=== PATIENT | female | born 1985 | race American Indian/Alaskan Native ===

== ENCOUNTER 2016-05-13 18:07 | Emergency (ER) | payer MEDICAID, OTHER ==
[2016-05-13 19:02] LABS: Bacteria,Urine 1+ /HPF (Negative); Bilirubin,Urine NEG (Negative); Blood,Urine SM (Negative); Ketones,Urine TR mg/dL (Negative); Leukocyte Esterase,Urine TR (Negative); Mucus,Urine 3+ /HPF; Nitrite,Urine NEG (Negative); Urobilinogen,Urine < 2.0 mg/dL (<2.0)
[2016-05-13 19:18] LABS: Basophils % (Auto) 0.6 % (0.0-1.8); Eosinophils % (Auto) 1.5 % (0.0-4.3); Hematocrit 36.6 % (30.3-42.9); Hemoglobin 12.3 gm/dl (10.1-14.3); Mean Corpuscular HGB Conc 34 % (30-34); Mean Corpuscular Hemoglobin 31 pg (28-32); Mean Corpuscular Volume 93 fl (79-97); Platelet Count 204 K/mm3 (140-440); Red Blood Count 3.93 M/mm3 (3.65-5.03); Red Cell Distribution Width 13.6 % (13.2-15.2); White Blood Count 6.4 K/mm3 (4.5-11.0)
[2016-05-13 19:37] LABS: Alanine Aminotransferase 10 units/L (7-56); Albumin 4.2 g/dL (3.9-5); Albumin/Globulin Ratio 1.8 %; Alkaline Phosphatase 80 units/L (35-129); BUN/Creatinine Ratio 14.28; Bilirubin,Total 0.2 mg/dL (0.1-1.2); Blood Urea Nitrogen 10 mg/dL (7-17); Calcium 8.6 mg/dL (8.4-10.2); Carbon Dioxide 24 mmol/L (22-30); Chloride 104.8 mmol/L (98-107); Glucose 82 mg/dL (65-100); Lipase 18 units/L (13-60); Potassium 4.1 mmol/L (3.6-5.0); Sodium 141 mmol/L (137-145); Total Protein 6.5 g/dL (6.3-8.2)
[2016-05-13 19:50] LABS: Anion Gap 16 mmol/L
[2016-05-13] MEDS ORDERED: ZOFRAN IV ONE (22:03)
[2016-05-13] MEDS ORDERED: DILAUDID IV ONE (22:04)
--- NOTE | 2016-05-13 22:06 | Emergency Department Report ---
ED General Adult HPI - General Chief complaint: Abdominal Pain Stated complaint: PAIN Time Seen by Provider: 05/13/16 21:56 Source: patient, RN notes reviewed Mode of arrival: Ambulatory Limitations: No Limitations - History of Present Illness Initial comments: This is a 30-year-old female, previously unknown to me. This past Saturday, patient had laparoscopic ovarian cystectomy performed at [facility], by Dr. Rolando Robertson. 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 She reports that since the procedure completed, she's had persistent abdominal pain. The abdominal pain is sharp and diffuse. It increases with palpation and decreases with rest. No fevers. Positive diarrhea. Reports 3 episodes of watery diarrhea in the past 24 hours. Apparently she was given Percocet, and she reports complaining all of her Percocet prescription. -: Gradual Location: abdomen Severity scale (0 -10): 10 Consistency: constant Improves with: rest Worsens with: movement Associated Symptoms: denies: confusion, chest pain, cough, diaphoresis, fever/ chills, headaches, loss of appetite, shortness of breath, syncope - Related Data Previous Rx's Medication Instructions Recorded Last Taken Type Metoclopramide [Reglan] 10 mg PO QID PRN #30 tablet 05/14/16 Unknown Rx oxyCODONE [Roxicodone] 5 mg PO Q6HR PRN #15 tablet 05/14/16 Unknown Rx Allergies Allergy/AdvReac Type Severity Reaction Status Date / Time No Known Allergies Allergy Verified 07/01/13 08:38 ED Review of Systems ROS: Stated complaint: PAIN Other details as noted in HPI Constitutional: denies: fever Eyes: denies: vision change ENT: denies: epistaxis Respiratory: denies: cough Cardiovascular: denies: chest pain Gastrointestinal: abdominal pain, diarrhea Genitourinary: denies: dysuria Musculoskeletal: denies: back pain Skin: denies: lesions Neurological: denies: abnormal gait Psychiatric: as per HPI, anxiety ED Past Medical Hx - Past Medical History Previous Medical History?: Yes Hx Congestive Heart Failure: No Hx Diabetes: No Hx GERD: Yes Hx Asthma: Yes Hx COPD: No Additional medical history: ovarian cysts - Surgical History Past Surgical History?: Yes Additional Surgical History: left ovary removal surgery - Social History Smoking Status: Never Smoker Substance Use Type: None - Medications Home Medications: Home Medications Medication Instructions Recorded Confirmed Last Taken Type Metoclopramide [Reglan] 10 mg PO QID PRN #30 tablet 05/14/16 Unknown Rx oxyCODONE [Roxicodone] 5 mg PO Q6HR PRN #15 tablet 05/14/16 Unknown Rx ED Physical Exam - General Limitations: No Limitations General appearance: alert, in no apparent distress - Head Head exam: Present: atraumatic, normocephalic - Eye Eye exam: Present: normal appearance, EOMI. Absent: nystagmus - ENT ENT exam: Present: normal exam, normal orophraynx, mucous membranes moist, normal external ear exam - Neck Neck exam: Present: normal inspection, full ROM. Absent: tenderness, meningismus - Respiratory Respiratory exam: Present: normal lung sounds bilaterally. Absent: respiratory distress, wheezes, rales, rhonchi, stridor, decreased breath sounds - Cardiovascular Cardiovascular Exam: Present: regular rate, normal rhythm, normal heart sounds. Absent: bradycardia, tachycardia, irregular rhythm, systolic murmur, diastolic murmur, rubs, gallop - GI/Abdominal GI/Abdominal exam: Present: soft, tenderness, normal bowel sounds, other (mild diffuse abdominal tenderness. Surgical sites appear to be clean and healing well. There is no redness, pus or streaking.). Absent: distended, guarding, rebound, rigid, pulsatile mass - Extremities Exam Extremities exam: Present: normal inspection, full ROM, normal capillary refill. Absent: tenderness, pedal edema, joint swelling, calf tenderness - Back Exam Back exam: Present: normal inspection, full ROM. Absent: tenderness, CVA tenderness (R), CVA tenderness (L), muscle spasm - Neurological Exam Neurological exam: Present: alert, oriented X3, normal gait, other (Extraocular movements intact. Tongue midline. No facial droop. Facial sensation intact to light touch in the V1, V2, V3 distribution bilaterally. 5 and 5 strength in 4 extremities.. Sensation is intact to light touch in 4 extremities.). Absent : motor sensory deficit - Psychiatric Psychiatric exam: Present: normal affect, normal mood - Skin Skin exam: Present: warm, dry, intact, normal color. Absent: rash ED Course Vital Signs 05/13/16 05/13/16 05/13/16 18:09 21:30 22:21 Temperature 98.6 F 98.6 F Pulse Rate 109 H 83 Respiratory 18 18 18 Rate Blood Pressure 115/65 Blood Pressure 105/64 [Left] O2 Sat by Pulse 100 100 Oximetry 05/13/16 22:51 Temperature Pulse Rate 97 H Respiratory 18 Rate Blood Pressure Blood Pressure 118/67 [Left] O2 Sat by Pulse 100 Oximetry - Reevaluation(s) Reevaluation #1: 05/13/16 23:08 Differential diagnosis: Postsurgical pain, chronic pain, endometriosis, bleeding , infection, damage to adjacent structures Assessment and plan: 30-year-old female who had ovarian cystectomy for chronic pelvic pain, with persistent pain for 5-1/2 days status post surgery. She is afebrile with reassuring vital signs. Appears to have a chronic pain component to her presentation. I have sent an acetaminophen level to make certain that the patient does not have acetaminophen toxicity. Her pain will be treated symptomatically. A CT scan of the abdomen and pelvis has been ordered. I will discuss with her gynecologic surgeon once the results have been completed. Tachycardia has resolved. No episodes of diarrhea while I have been here in the emergency room with her. Reevaluation #2: 05/14/16 01:14 CT scan of the abdomen and pelvis demonstrates no acute disease. The case was relayed to the Gynecology Physician, Dr. Bobby. She Indicated the Patient Can Follow-Up in the Office in the Morning for Further Evaluation. Given That the Patient Is Afebrile, Had a Negative CAT Scan, Is Tolerating Liquid Feeds, Has Close Follow-Up in the Morning, and She Is 6 Days Postop, with No Obvious Complications, I Think This Plan of Care Is Reasonable. ED Medical Decision Making - Lab Data Result diagrams: 05/13/16 19:05 05/13/16 19:05 Vital Signs 05/13/16 05/13/16 05/13/16 18:09 21:30 22:21 Temperature 98.6 F 98.6 F Pulse Rate 109 H 83 Respiratory 18 18 18 Rate Blood Pressure 115/65 Blood Pressure 105/64 [Left] O2 Sat by Pulse 100 100 Oximetry 05/13/16 22:51 Temperature Pulse Rate 97 H Respiratory 18 Rate Blood Pressure Blood Pressure 118/67 [Left] O2 Sat by Pulse 100 Oximetry Labs 05/13/16 05/13/16 05/13/16 18:23 19:05 19:05 WBC 6.4 RBC 3.93 Hgb 12.3 Hct 36.6 MCV 93 MCH 31 MCHC 34 RDW 13.6 Plt Count 204 Lymph % (Auto) 39.1 H [place] % (Auto) 7.9 H Eos % (Auto) 1.5 Baso % (Auto) 0.6 Lymph # 2.5 [place] # 0.5 Eos # 0.1 Baso # 0.0 Seg Neutrophils % 50.9 Seg Neutrophils # 3.3 Sodium 141 Potassium 4.1 Chloride 104.8 Carbon Dioxide 24 Anion Gap 16 BUN 10 Creatinine 0.7 Estimated GFR > 60 BUN/Creatinine Ratio 14.28 Glucose 82 Calcium 8.6 Total Bilirubin 0.2 AST 13 ALT 10 Alkaline Phosphatase 80 Total Protein 6.5 Albumin 4.2 Albumin/Globulin Ratio 1.8 Lipase 18 Urine Color Vanessa Urine Turbidity Clear Urine pH 5.0 Ur Specific [place] 1.032 H Urine Protein 100 mg/dl Urine Glucose (UA) Neg Urine Ketones Tr Urine Blood Sm Urine Nitrite Neg Urine Bilirubin Neg Urine Urobilinogen < 2.0 Ur Leukocyte Esterase Tr Urine WBC (Auto) 2.0 Urine RBC (Auto) 12.0 U Epithel Cells (Auto) 33.0 H Urine Bacteria (Auto) 1+ Urine Mucus 3+ Urine HCG, Qual Negative Acetaminophen 05/13/16 22:31 WBC RBC Hgb Hct MCV MCH MCHC RDW Plt Count Lymph % (Auto) [place] % (Auto) Eos % (Auto) Baso % (Auto) Lymph # [place] # Eos # Baso # Seg Neutrophils % Seg Neutrophils # Sodium Potassium Chloride Carbon Dioxide Anion Gap BUN Creatinine Estimated GFR BUN/Creatinine Ratio Glucose Calcium Total Bilirubin AST ALT Alkaline Phosphatase Total Protein Albumin Albumin/Globulin Ratio Lipase Urine Color Urine Turbidity Urine pH Ur Specific [place] Urine Protein Urine Glucose (UA) Urine Ketones Urine Blood Urine Nitrite Urine Bilirubin Urine Urobilinogen Ur Leukocyte Esterase Urine WBC (Auto) Urine RBC (Auto) U Epithel Cells (Auto) Urine Bacteria (Auto) Urine Mucus Urine HCG, Qual Acetaminophen < 15.0 - Radiology Data Radiology results: report reviewed, image reviewed CT scan of the abdomen and pelvis demonstrates no acute disease. Critical care attestation.: If time is entered above; I have spent that time in minutes in the direct care of this critically ill patient, excluding procedure time. ED Disposition Clinical Impression: Abdominal pain in female patient Disposition: DISCHARGED TO HOME OR SELFCARE Is pt being admited?: No Does the pt Need Aspirin: No Condition: Stable Instructions: Abdominal Pain (ED) Additional Instructions: Laboratory studies were unremarkable. CT scan of the abdomen and pelvis demonstrated no acute disease. 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 this was relayed to Dr. Bobby, the covering physician for Dr. Rolando Robertson. Take the pain medication, nausea medication as directed. Please return to the ER right away with new pain, worsened pain, migration of pain, intractable nausea or vomiting, inability to tolerate liquid feeds. [facility] [address] [place] [address] Prescriptions: Metoclopramide [Reglan] 10 mg PO QID PRN #30 tablet PRN Reason: Nausea oxyCODONE [Roxicodone] 5 mg PO Q6HR PRN #15 tablet PRN Reason: Pain Referrals: PRIMARY CARE, [Primary Care Provider] - 3-5 Days
[2016-05-13] MEDS ORDERED: NACL ONE (22:11)
[2016-05-13] MEDS ORDERED: NACL 0.9% 1000 ML 2,000 ML ONE (22:14)
[2016-05-13] MEDS ORDERED: NACL 0.9% 500 ML IV SCH (23:00)
--- NOTE | 2016-05-14 00:31 | Cat Scan Report ---
FINAL REPORT EXAM: CT ABDOMEN PELVIS W CON HISTORY: abd pain s/p cystectomy TECHNIQUE: Spiral CT scanning of the abdomen and pelvis after the uneventful administration of IV contrast. Multiplanar reformations. 100 mL Omnipaque IV. PRIORS: None. FINDINGS: Abdomen: Visualized lung bases grossly unremarkable. No radiopaque gallstones. Liver without significant abnormality. Spleen without significant abnormality. Pancreas without significant abnormality. Kidneys without significant abnormality. Adrenal glands without significant abnormality. Pelvis: Bowel grossly unremarkable. Appendix within normal limits. Trace amount of free fluid in the pelvis. No discrete abscess. Abdominal aorta non-aneurysmal. Mild soft tissue density or thickening in the umbilicus region may be postsurgical change or residual. IMPRESSION: 1. No acute findings.
[2016-05-14 02:21] VITALS: BP 116/59
== END 2016-05-14 02:20 | disposition home or self-care (01) ==
LOC: EDSEX → ED 18:07
DX: R10.84 Generalized abdominal pain (principal); K21.9 Gastro-esophageal reflux disease without esophagitis; J45.909 Unspecified asthma, uncomplicated
CPT/HCPCS: 36415; 74177; 80053; 81001; 81025; 83690; 85025; 96361; 96374; 96375; 99284; G0480; J1170; J2405; J7030; Q9967; 80320

== ENCOUNTER 2017-01-24 08:46 | Emergency (ER) | payer MEDICAID ==
[2017-01-24 09:18] LABS: Basophils % (Auto) 0.8 % (0.0-1.8); Eosinophils % (Auto) 1.9 % (0.0-4.3); Hematocrit 39.6 % (30.3-42.9); Hemoglobin 13.1 gm/dl (10.1-14.3); Mean Corpuscular HGB Conc 33 % (30-34); Mean Corpuscular Hemoglobin 31 pg (28-32); Mean Corpuscular Volume 94 fl (79-97); Platelet Count 232 K/mm3 (140-440); Red Blood Count 4.23 M/mm3 (3.65-5.03); Red Cell Distribution Width 13.4 % (13.2-15.2); White Blood Count 5.2 K/mm3 (4.5-11.0)
[2017-01-24 09:19] LABS: Bacteria,Urine 1+ /HPF (Negative); Bilirubin,Urine NEG (Negative); Blood,Urine LG (Negative); Ketones,Urine NEG (Negative); Leukocyte Esterase,Urine NEG (Negative); Mucus,Urine FEW /HPF; Nitrite,Urine NEG (Negative); Urobilinogen,Urine < 2.0 mg/dL (<2.0)
[2017-01-24 09:46] LABS: Alanine Aminotransferase 19 units/L (7-56); Albumin 4.3 g/dL (3.9-5); Albumin/Globulin Ratio 1.4 %; Alkaline Phosphatase 72 units/L (35-129); Anion Gap 13 mmol/L; BUN/Creatinine Ratio 20; Blood Urea Nitrogen 12 mg/dL (7-17); Carbon Dioxide 28 mmol/L (22-30); Chloride 103.1 mmol/L (98-107); Glucose 101 mg/dL (65-100); Lipase 16 units/L (13-60); Potassium 4.2 mmol/L (3.6-5.0); Sodium 140 mmol/L (137-145); Total Protein 7.4 g/dL (6.3-8.2)
[2017-01-24] MEDS ORDERED: BACTRIM DS PO ONE (11:05)
[2017-01-24] MEDS ORDERED: ZOFRAN ODT PO ONE (11:05)
[2017-01-24] MEDS ORDERED: NORCO 10/325 PO ONE (11:05)
--- NOTE | 2017-01-24 11:46 | Cat Scan Report ---
CT OF THE ABDOMEN AND PELVIS WITHOUT CONTRAST HISTORY: Right flank pain, evaluate for stone. TECHNIQUE: Helical CT without contrast. Sagittal and coronal reformatted images. FINDINGS: Within the limits of a noncontrast exam, the abdominal and pelvic viscera are within normal limits. The liver, biliary system, pancreas, spleen, kidneys, adrenal glands and bladder are unremarkable. The bowel loops are normal caliber and wall thickness. Normal appendix. The aorta is normal caliber. No ascites, bulky adenopathy or inflammatory changes. The lung bases are clear. Normal heart size. No suspicious bony lesion. IMPRESSION: Unremarkable noncontrast CT of the abdomen and pelvis.
[2017-01-24] MEDS ORDERED: NAPROSYN PO ONE (12:00)
--- NOTE | 2017-01-24 12:24 | Emergency Department Report ---
ED General Adult HPI - General Chief complaint: Abdominal Pain Stated complaint: VAGINAL BLEEDING , ABDOMINAL PAIN Time Seen by Provider: 01/24/17 10:59 Source: patient Mode of arrival: Ambulatory Limitations: No Limitations - History of Present Illness Initial comments: The patient is a 31-year-old female past medical history of GERD, hypertension, s/p left oophorectomy presents with pelvic pain and dysuria. Patient states that she's noticed some blood coming from her urethra. She says nothing makes it better or worse. She says pelvic pain is a 7 out of 10 nothing makes it worse or better some crampy type of pain that radiates throughout her pelvis. She also states that she is nauseous 2 but has not vomited. Patient states the pain has been gradual in onset and is now constant crampy type of pain. Patient states that she's used so far 2 pads. She is sexually active no vaginal discharge. Severity scale (0 -10): 9 - Related Data Previous Rx's Medication Instructions Recorded Last Taken Type Metoclopramide [Reglan] 10 mg PO QID PRN #30 tablet 05/14/16 Unknown Rx oxyCODONE [Roxicodone] 5 mg PO Q6HR PRN #15 tablet 05/14/16 Unknown Rx Acetaminophen 1,000 mg PO Q6HR PRN #30 tablet 01/24/17 Unknown Rx Naproxen 250 mg PO BID #20 tablet 01/24/17 Unknown Rx Sulfamethoxazole/Trimethoprim 1 each PO BID #10 tablet 01/24/17 Unknown Rx [Bactrim DS TAB] Allergies Allergy/AdvReac Type Severity Reaction Status Date / Time No Known Allergies Allergy Verified 07/01/13 08:38 ED Review of Systems ROS: Stated complaint: VAGINAL BLEEDING , ABDOMINAL PAIN Other details as noted in HPI Constitutional: denies: chills, fever Eyes: denies: eye pain, eye discharge, vision change ENT: denies: ear pain, throat pain Respiratory: denies: cough, shortness of breath, wheezing Cardiovascular: denies: chest pain, palpitations Endocrine: no symptoms reported Gastrointestinal: denies: abdominal pain, nausea, diarrhea Genitourinary: as per HPI, hematuria. denies: urgency, dysuria, discharge Musculoskeletal: denies: back pain, joint swelling, arthralgia Skin: denies: rash, lesions Neurological: denies: headache, weakness, paresthesias Psychiatric: denies: anxiety, depression Hematological/Lymphatic: denies: easy bleeding, easy bruising ED Past Medical Hx - Past Medical History Previous Medical History?: Yes Hx Congestive Heart Failure: No Hx Diabetes: No Hx GERD: Yes Hx Asthma: Yes Hx COPD: No Additional medical history: ovarian cysts - Surgical History Past Surgical History?: Yes Additional Surgical History: left ovary removal surgery - Social History Smoking Status: Never Smoker Substance Use Type: None - Medications Home Medications: Home Medications Medication Instructions Recorded Confirmed Last Taken Type Metoclopramide [Reglan] 10 mg PO QID PRN #30 tablet 05/14/16 Unknown Rx oxyCODONE [Roxicodone] 5 mg PO Q6HR PRN #15 tablet 05/14/16 Unknown Rx Acetaminophen 1,000 mg PO Q6HR PRN #30 tablet 01/24/17 Unknown Rx Naproxen 250 mg PO BID #20 tablet 01/24/17 Unknown Rx Sulfamethoxazole/Trimethoprim 1 each PO BID #10 tablet 01/24/17 Unknown Rx [Bactrim DS TAB] ED Physical Exam - General Limitations: No Limitations General appearance: alert, in no apparent distress - Head Head exam: Present: atraumatic, normocephalic - Eye Eye exam: Present: normal appearance - ENT ENT exam: Present: mucous membranes moist - Neck Neck exam: Present: normal inspection - Respiratory Respiratory exam: Present: normal lung sounds bilaterally. Absent: respiratory distress - Cardiovascular Cardiovascular Exam: Present: regular rate, normal rhythm. Absent: systolic murmur, diastolic murmur, rubs, gallop - GI/Abdominal GI/Abdominal exam: Present: soft, normal bowel sounds - Extremities Exam Extremities exam: Present: normal inspection - Back Exam Back exam: Present: CVA tenderness (R) - Neurological Exam Neurological exam: Present: alert, oriented X3 - Psychiatric Psychiatric exam: Present: normal affect, normal mood - Skin Skin exam: Present: warm, dry, intact, normal color. Absent: rash ED Course Vital Signs 01/24/17 01/24/17 01/24/17 08:56 11:05 13:28 Temperature 98.1 F Pulse Rate 77 78 Respiratory 18 18 18 Rate Blood Pressure 103/61 Blood Pressure 104/61 [Left] O2 Sat by Pulse 100 99 100 Oximetry ED Medical Decision Making - Lab Data Result diagrams: 01/24/17 09:01 01/24/17 09:01 Lab Results 01/24/17 01/24/17 01/24/17 Range/Units 09:00 09:01 09:01 WBC 5.2 (4.5-11.0) K/mm3 RBC 4.23 (3.65-5.03) M/mm3 Hgb 13.1 (10.1-14.3) gm/dl Hct 39.6 (30.3-42.9) % MCV 94 (79-97) fl MCH 31 (28-32) pg MCHC 33 (30-34) % RDW 13.4 (13.2-15.2) % Plt Count 232 (140-440) K/mm3 Lymph % (Auto) 36.0 H (13.4-35.0) % [place] % (Auto) 7.5 H (0.0-7.3) % Eos % (Auto) 1.9 (0.0-4.3) % Baso % (Auto) 0.8 (0.0-1.8) % Lymph # 1.9 (1.2-5.4) K/mm3 [place] # 0.4 (0.0-0.8) K/mm3 Eos # 0.1 (0.0-0.4) K/mm3 Baso # 0.0 (0.0-0.1) K/mm3 Seg Neutrophils % 53.8 (40.0-70.0) % Seg Neutrophils # 2.8 (1.8-7.7) K/mm3 Sodium 140 (137-145) mmol/L Potassium 4.2 (3.6-5.0) mmol/L Chloride 103.1 (98-107) mmol/L Carbon Dioxide 28 (22-30) mmol/L Anion Gap 13 mmol/L BUN 12 (7-17) mg/dL Creatinine 0.6 L (0.7-1.2) mg/dL Estimated GFR > 60 ml/min BUN/Creatinine Ratio 20 % Glucose 101 H (65-100) mg/dL Calcium 9.0 (8.4-10.2) mg/dL Total Bilirubin 0.30 (0.1-1.2) mg/dL AST 20 (5-40) units/L ALT 19 (7-56) units/L Alkaline Phosphatase 72 (35-129) units/L Total Protein 7.4 (6.3-8.2) g/dL Albumin 4.3 (3.9-5) g/dL Albumin/Globulin Ratio 1.4 % Lipase 16 (13-60) units/L Urine Color Red (Yellow) Urine Turbidity Clear (Clear) Urine pH 6.0 (5.0-7.0) Ur Specific [place] 1.024 (1.003-1.030) Urine Protein 30 mg/dl (Negative) mg/dL Urine Glucose (UA) Neg (Negative) mg/dL Urine Ketones Neg (Negative) mg/dL Urine Blood Lg (Negative) Urine Nitrite Neg (Negative) Urine Bilirubin Neg (Negative) Urine Urobilinogen < 2.0 (<2.0) mg/dL Ur Leukocyte Esterase Neg (Negative) Urine WBC (Auto) 5.0 (0.0-6.0) /HPF Urine RBC (Auto) 15.0 (0.0-6.0) /HPF U Epithel Cells (Auto) 13.0 (0-13.0) /HPF Urine Bacteria (Auto) 1+ (Negative) /HPF Urine Mucus Few /HPF - Radiology Data Radiology results: report reviewed, image reviewed CT pelvis: Shows no acute process in the pelvis. - Medical Decision Making Chief medical diagnosis: UTI Differential medical diagnosis: Pyelonephritis, renal colic , dysfunctional uterine bleeding, anemia A CBC, CMP, IV pain medication, IV antiemetics, CT abdomen and pelvis Patient is feeling better after IV pain medicine CT scan was unremarkable urinalysis shows blood in urine she also has right CVA tenderness based on her symptoms I will treat her for UTI with Bactrim L Ctr. home with oral naproxen. Discussed plan patient patient agrees the plan. Critical care attestation.: If time is entered above; I have spent that time in minutes in the direct care of this critically ill patient, excluding procedure time. ED Disposition Clinical Impression: Pelvic pain, Nausea UTI (urinary tract infection) Qualifiers: Urinary tract infection type: acute cystitis Hematuria presence: with hematuria Qualified Code(s): N30.01 - Acute cystitis with hematuria Disposition: TO HOME OR SELFCARE Is pt being admited?: No Does the pt Need Aspirin: No Condition: Stable Instructions: Urinary Tract Infection in Women (ED) Prescriptions: Acetaminophen 1,000 mg PO Q6HR PRN #30 tablet PRN Reason: Pain Naproxen 250 mg PO BID #20 tablet Sulfamethoxazole/Trimethoprim [Bactrim DS TAB] 1 each PO BID #10 tablet Referrals: GONSALO HAMMER MD [Primary Care Provider] - 3-5 Days
[2017-01-24] MEDS ORDERED: TORADOL IM ONE (12:34)
[2017-01-24 13:28] VITALS: BP 104/61
== END 2017-01-24 13:29 | disposition home or self-care (01) ==
LOC: ED 08:46
DX: N30.01 Acute cystitis with hematuria (principal); R10.2 Pelvic and perineal pain; R11.0 Nausea; K21.9 Gastro-esophageal reflux disease without esophagitis; J45.909 Unspecified asthma, uncomplicated; Z90.721 Acquired absence of ovaries, unilateral
CPT/HCPCS: 36415; 74176; 80053; 81001; 81025; 83690; 85025; 96372; 99284; J1885; Q0162

== ENCOUNTER 2017-03-04 08:25 | Outpatient (CLI) | payer MEDICAID ==
--- NOTE | 2017-03-04 10:26 | Fluoroscopy Report ---
Hysterosalpingogram: History of left ectopic with current infertility. The patient was placed in a lithotomy position. The speculum was successfully placed and a 5 Cymraes catheter was placed into the endometrial canal and secured with air-filled balloon. Injection of water-soluble contrast demonstrated patency of the right fallopian tube. A short segment of occluded left fallopian tube noted. The endometrial contour is unremarkable with no filling defect. No patient or technical complications. Impressions: Patent right fallopian tube. Occluded left fallopian tube.
== END 2017-03-04 08:26 | disposition home or self-care (01) ==
LOC: FLUORO 08:25
PROVIDERS: ATTEND Obstetrics & Gynecology
DX: N97.1 Female infertility of tubal origin (principal)
CPT/HCPCS: 58340; 74740; Q9967

== ENCOUNTER 2019-07-08 06:04 | Day surgery (SDC) | payer MEDICAID ==
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
[~2019-07-08 06:04] MED LIST: CELECOXIB 200 MG CAP PO NR; GABAPENTIN 300 MG CAP PO NR; LACTATED RINGERS 1,000 ML IV SCH; MAGNESIUM OXIDE 400 MG TAB PO SCH; MIDAZOLAM 2 MG/2 ML INJ IV NR; ceFAZolin/Water 2 GM/20 ML 2 GM/20 ML SYRINGE IV NR; fentaNYL 100 MCG/2 ML INJ IV PRN
[2019-07-08 06:53] LABS: Basophils # (Auto) 0.1 K/mm3 (0.0-0.1); Basophils % (Auto) 0.8 % (0.0-1.8); Eosinophils # (Auto) 0.2 K/mm3 (0.0-0.4); Eosinophils % (Auto) 2.2 % (0.0-4.3); Hematocrit 36.8 % (30.3-42.9); Hemoglobin 12.5 gm/dl (10.1-14.3); Lymphocytes # (Auto) 3.3 K/mm3 (1.2-5.4); Lymphocytes % (Auto) 42.6 % (13.4-35.0); Mean Corpuscular HGB Conc 34 % (30-34); Mean Corpuscular Volume 91 fl (79-97); Monocytes # (Auto) 0.5 K/mm3 (0.0-0.8); Monocytes % (Auto) 6.6 % (0.0-7.3); Platelet Count 266 K/mm3 (140-440); Red Blood Count 4.03 M/mm3 (3.65-5.03); Red Cell Distribution Width 13.9 % (13.2-15.2)
[2019-07-08] MEDS ORDERED: ceFAZolin/STERILE WATER 2 GM/20 ML SYRINGE IV NR (07:00)
[2019-07-08 07:17] LABS: BUN/Creatinine Ratio 16; Blood Urea Nitrogen 11 mg/dL (7-17); Calcium 9.1 mg/dL (8.4-10.2); Hemolysis Index 10
[2019-07-08] MEDS ORDERED: dexAMETHasone 4 MG/ML VIAL ONE (07:20)
[2019-07-08] MEDS ORDERED: cloNIDine/PF 1,000 MCG/10 ML VIAL EP ONE (07:21)
[2019-07-08] MEDS ORDERED: BUPIVACAINE-EPINEPHRINE/PF 0.25%-1:200,000 (30 ML) VIAL INFILTRATI ONE (07:21)
[2019-07-08] MEDS ORDERED: ROCURONIUM 50 MG/5 ML INJ IV ONE (07:22)
[2019-07-08] MEDS ORDERED: SUCCINYLCHOLINE CHLORIDE 200 MG/10 ML INJ MDV ONE (07:22)
[2019-07-08] MEDS ORDERED: ONDANSETRON 4 MG/2 ML INJ ONE (07:22)
[2019-07-08] MEDS ORDERED: dexAMETHasone 20 MG/5 ML VIAL ONE (07:22)
[2019-07-08] MEDS ORDERED: LIDOCAINE MPF (2%) 20 MG/1 ML VIAL 5 ML ONE (07:22)
[2019-07-08] MEDS ORDERED: HYDROmorphone 1 MG/1 ML INJ ONE (07:23)
[2019-07-08] MEDS ORDERED: fentaNYL 100 MCG/2 ML INJ ONE (07:23)
[2019-07-08] MEDS ORDERED: propofoL 200 MG/20 ML VIAL IV ONE (07:23)
[2019-07-08] MEDS ORDERED: NEOMY 40 MG/POLYMYXIN B 200,000 UNITS/ML (GU) AMPULE IR ONE ×2 (07:23→08:48)
[2019-07-08] MEDS ORDERED: HYDROmorphone 1 MG/1 ML INJ IV PRN (07:33)
--- NOTE | 2019-07-08 07:35 | Anesthesia Day of Surgery ---
Anesthesia Day of Surgery - Day of Surgery Patient Examined: Yes Patient H&P Reviewed: Yes Patient is NPO: Yes
--- NOTE | 2019-07-08 07:35 | Anesthesia Consultation ---
Anesthesia Consult and Med Hx Date of service: 07/08/19 - Airway Anesthetic Teeth Evaluation: Good ROM Head & Neck: Adequate Mental/Hyoid Distance: Adequate Mallampati Class: Class I Intubation Access Assessment: Good - Pulmonary Exam CTA: Yes - Cardiac Exam Cardiac Exam: RRR - Pre-Operative Health Status ASA Pre-Surgery Classification: ASA2 Proposed Anesthetic Plan: General Nerve Block: TAP - Pulmonary Hx Smoking: Yes (2 cig/day) Hx Asthma: Yes (last inhaler 3 wks ago) Hx Respiratory Symptoms: No - Cardiovascular System Hx Hypertension: No - Central Nervous System CVA: No Hx Psychiatric Problems: Yes (depression/anxiety) - Gastrointestinal Hx Gastroesophageal Reflux Disease: Yes (mild) - Endocrine Hx Renal Disease: No Hx Liver Disease: No Hx Insulin Dependent Diabetes: No Hx Non-Insulin Dependent Diabetes: No Hx Thyroid Disease: No - Hematic Hx Anemia: Yes - Other Systems Hx Obesity: Yes (BMI 32) - Additional Comments Anesthesia Medical History Comments: No hx anesthetic complications.
[2019-07-08] MEDS ORDERED: SODIUM CHLORIDE 0.9% IRRIG SOLN 2000 ML IR ONE (08:48)
[2019-07-08] MEDS ORDERED: SODIUM CHLORIDE 0.9% IRR 1,500 ML BOTTLE IR ONE (08:48)
[2019-07-08] MEDS ORDERED: KETOROLAC 30 MG/1 ML INJ IV PRN (09:11)
--- NOTE | 2019-07-08 09:15 | Operative Report ---
Operative Report Operative Report: Date of surgery: July 08, 2019 Preoperative diagnoses: Chronic pelvic pain; dyspareunia; dysmenorrhea Postoperative diagnoses: Same as above Procedure: Robotic hysterectomy; bilateral salpingectomy Surgeon: Josey Maza M.D. [employer] Manager: Lisette Robertson Anesthesia: Gen. endotracheal anesthesia Estimated blood loss: 50 mL Pathology: Uterus, cervix, bilateral tubes Indication: 33-year-old -0-1-1 with a history of chronic pelvic pain. The patient had failed medical and surgical management in the past and had elected to undergo definitive surgical management. Procedure: The patient was taken to the operating room and given general endotracheal anesthesia without complication. She is prepped and draped in a normal sterile fashion. A bivalve speculum was placed in the patient's vagina and a single- tooth tenaculum placed on the anterior lip of the cervix. The uterus was s ounded with the uterine sound. A Interior Define uterine manipulator was placed in the bivalve speculum was then removed. Attention was then turned to the patient's abdomen where a millimeter supra umbilical skin incision was then made. A Veress needle was placed and peritoneal entry was verified water-filled syringe. Insufflation of the peritoneal cavity was performed with CO2 gas. The 12 mm trocar was then placed under direct visualization. An additional 8 mm trocar was placed on the patient's left and right lateral side just opposite of the supraumbilical trocar. An additional 5 mm right lateral trocar was then placed as the accessory port. The patient was then placed in steep Trendelenburg. The da Betzaida robot was then engaged. A fenestrated forcep was placed in arm 2 and a vessel sealer was placed in arm 1. General survey revealed normal size uterus. The left ovary was surgically absent. No evidence of pelvic adhesive disease or endometriosis. The surgeon then transferred to the surgical console. The mesosalpinx was then isolated on the right. The vessel sealer was used to coagulate the mesosalpinx which was then transected. The tube was transected from the ovary. The tubo-ovarian ligament was then coagulated and transected. The round ligament was then coagulated and transected also. The vesicouterine peritoneum was then entered from the patient's right side. The uterine vessels were then coagulated with the vessel sealer. The vessels were then transected . Attention was then turned to the patient's left side where the tubo-ovarian ligament and mesosalpinx were again isolated coagulated and transected. The vesical peritoneum was then entered from the left and joined in the midline. Peritoneum was reflected off of the lower uterine segment. Uterine vessels were then coagulated and then transected. The blood supply to the uterus was adequately contained, a posterior colpotomy was made. The V care ring was visualized. Posterior colpotomy was created with the monopolar scissors. The incision was continued circumferentially until anterior colpotomy was made. The cervix and uterus were amputated from the vaginal cuff. The uterus was then re moved along with the tubes bilaterally through the vagina and a warm laparotomy sponge was placed and maintain the pneumoperitoneum. The vaginal cuff was then closed in a running fashion with V lock suture. Irrigation of the pelvis was performed. Hemoblast was applied to the incision. The supraumbilical 12 mm trocar site was closed with the Max Smith device. The skin was then reapproximated with 4-0 Monocryl. The tissue was sent to pathology which included the cervix, bilateral tubes and uterus. The patient was then successfully extubated. She was then taken to the recovery room in stable condition. All sponge laps and needle counts were correct x2.
[2019-07-08] MEDS ORDERED: GLYCOPYRROLATE 0.4 MG/2 ML INJ ONE (09:44)
[2019-07-08] MEDS ORDERED: NEOSTIGMINE 10MG/10 ML INJ MDV ONE (09:44)
[2019-07-08] MEDS ORDERED: IBUPROFEN 800 MG TAB PO PRN (12:46)
--- NOTE | 2019-07-08 13:03 | Post Anesthesia Evaluation ---
- Post Anesthesia Evaluation Patient Participated: Yes Airway Patent: Yes Stable Respiratory Function: Yes Nausea/Vomiting: No Temp > 96.8F: Yes Pain Manageable: Yes Adequeate Hydration: Yes Anesthesia Complications: No Other Comments: VS at baseline, pain well controlled, ambulating without difficulty in PACU. Patient to be d/c'd to home per surgeon orders and patient wishes.
[2019-07-08] MEDS: oxyCODONE /ACETAMINOPHEN 5-325MG TAB PO PRN ×2 (13:10→16:32)
[2019-07-08 17:34] VITALS: BP 134/79
== END 2019-07-08 18:25 | disposition home or self-care (01) ==
LOC: OR 06:04
PROVIDERS: ATTEND Obstetrics & Gynecology
DX: N94.6 Dysmenorrhea, unspecified (principal); G89.29 Other chronic pain; R10.2 Pelvic and perineal pain; N94.19 Other specified dyspareunia; G43.909 Migraine, unspecified, not intractable, without status migrainosus; J45.909 Unspecified asthma, uncomplicated; E66.9 Obesity, unspecified; K21.9 Gastro-esophageal reflux disease without esophagitis; M19.90 Unspecified osteoarthritis, unspecified site; F32.9 Major depressive disorder, single episode, unspecified; F41.9 Anxiety disorder, unspecified; D64.9 Anemia, unspecified; Z98.890 Other specified postprocedural states; Z87.891 Personal history of nicotine dependence; Z82.49 Family history of ischemic heart disease and other diseases of the circulatory system; Z83.3 Family history of diabetes mellitus
CPT/HCPCS: 36415; 58552; 64450; 80048; 81025; 85025; 86850; 86900; 86901; 88307; A4217; J0330; J0690; J0735; J1100; J1170; J2250; J2405; J2704; J2710; J3010; J7120; S2900

== ENCOUNTER 2020-01-06 00:38 | Emergency (ER) | payer MEDICAID ==
[2020-01-06 01:36] VITALS: BP 137/85
--- NOTE | 2020-01-06 03:00 | XRay Report ---
LEFT FOOT 3 VIEWS INDICATION / CLINICAL INFORMATION: foreign body. COMPARISON: None available. FINDINGS: BONES/JOINT(S): No acute fracture or subluxation. No significant degenerative changes. SOFT TISSUES: No radiopaque foreign body or soft tissue gas identified. ADDITIONAL FINDINGS: None. Signer Name: Trevor Dickinson MD Signed: 01/06/2020 2:56 AM Workstation Name: [id number]
--- NOTE | 2020-01-06 04:47 | Emergency Department Report ---
ED General Adult HPI - General Chief complaint: Extremity Injury, Lower Stated complaint: GLASS IN FOOT Time Seen by Provider: 01/06/20 03:40 Source: patient Mode of arrival: Ambulatory Limitations: No Limitations - History of Present Illness Initial comments: 34-year-old -[place] female patient presents with complaints of left foot pain x 1 month. Patient states pain has been ongoing since stepping on a piece of glass. She states she was not able to remove the piece of glass. Patient reports the pain has been worsening over the past few days. She denies any numbness/tingling/weakness in her foot or toes, redness, swelling, or fever/chills/sweats. She rates her pain as a 10/10 in severity and states she is unable to put pressure on her foot. - Related Data Home Medications Medication Instructions Recorded Confirmed Last Taken ARIPiprazole [Abilify] 10 mg PO DAILY 07/08/19 07/08/19 07/07/19 12:00 Dextroamphetamine/Amphetamine 20 mg PO BID 07/08/19 07/08/19 07/07/19 12:00 [Adderall 20 mg Tablet] Vortioxetine Hydrobromide 20 mg PO QHS 07/08/19 07/08/19 07/07/19 12:00 [Trintellix] hydrOXYzine PAMOATE [Vistaril] 25 mg PO BID PRN 07/08/19 07/08/19 07/07/19 12:00 Previous Rx's Medication Instructions Recorded Last Taken Type Docusate Sodium [Colace] 100 mg PO BID PRN #60 capsule 07/08/19 Unknown Rx Ibuprofen [Motrin] 800 mg PO Q8HR PRN #60 tablet 07/08/19 Unknown Rx Oxycodone HCl/Acetaminophen 1 each PO Q6HR PRN #30 tablet 07/08/19 Unknown Rx [Percocet 10/325 mg] Acetaminophen/Codeine [Tylenol 1 tab PO Q6H PRN #10 tab 01/06/20 Unknown Rx /Codeine # 3 tab] Diclofenac Sodium 75 mg PO BID PRN #14 tablet. 01/06/20 Unknown Rx Allergies Allergy/AdvReac Type Severity Reaction Status Date / Time No Known Allergies Allergy Verified 06/29/19 14:32 ED Review of Systems ROS: Stated complaint: GLASS IN FOOT Other details as noted in HPI Constitutional: denies: chills, diaphoresis, fever, malaise Cardiovascular: denies: chest pain Gastrointestinal: denies: nausea, vomiting Musculoskeletal: arthralgia Skin: denies: change in color, pruritus Neurological: denies: numbness, paresthesias ED Past Medical Hx - Past Medical History Previous Medical History?: Yes Hx Hypertension: No Hx Congestive Heart Failure: No Hx Diabetes: No Hx GERD: Yes Hx Liver Disease: No Hx Renal Disease: No Hx Arthritis: Yes (Hands) Hx Headaches / Migraines: Yes (Migraines) Hx Asthma: Yes (last inhaler 3 wks ago) Additional medical history: ovarian cysts - Surgical History Past Surgical History?: Yes Additional Surgical History: left ovary removal surgery - Social History Smoking Status: Never Smoker Substance Use Type: None - Medications Home Medications: Home Medications Medication Instructions Recorded Confirmed Last Taken Type ARIPiprazole [Abilify] 10 mg PO DAILY 07/08/19 07/08/19 07/07/19 12:00 History Dextroamphetamine/Amphetamine 20 mg PO BID 07/08/19 07/08/19 07/07/19 12:00 History [Adderall 20 mg Tablet] Docusate Sodium [Colace] 100 mg PO BID PRN #60 capsule 07/08/19 Unknown Rx Ibuprofen [Motrin] 800 mg PO Q8HR PRN #60 tablet 07/08/19 Unknown Rx Oxycodone HCl/Acetaminophen 1 each PO Q6HR PRN #30 tablet 07/08/19 Unknown Rx [Percocet 10/325 mg] Vortioxetine Hydrobromide 20 mg PO QHS 07/08/19 07/08/19 07/07/19 12:00 History [Trintellix] hydrOXYzine PAMOATE [Vistaril] 25 mg PO BID PRN 07/08/19 07/08/19 07/07/19 12:00 History Acetaminophen/Codeine [Tylenol 1 tab PO Q6H PRN #10 tab 01/06/20 Unknown Rx /Codeine # 3 tab] Diclofenac Sodium 75 mg PO BID PRN #14 tablet. 01/06/20 Unknown Rx ED Physical Exam - General Limitations: No Limitations General appearance: alert, in no apparent distress - Head Head exam: Present: atraumatic, normocephalic - Eye Eye exam: Present: normal appearance. Absent: scleral icterus - Respiratory Respiratory exam: Absent: respiratory distress - Cardiovascular Cardiovascular Exam: Present: regular rate, normal rhythm - Expanded Lower Extremity Exam Left Foot/Toe exam: Present: full ROM, tenderness (tenderness to the distal plantar third metatarsal region without obvious foreign body or erythema). Absent: swelling, ecchymosis, deformity, erythema Neuro vascular tendon exam: Absent: no vascular compromise, abnormal cap refill, motor deficit, sensory deficit, pallor 1 - Tenderness to palpation - Back Exam Back exam: Present: normal inspection, full ROM - Neurological Exam Neurological exam: Present: alert, oriented X3. Absent: motor sensory deficit - Psychiatric Psychiatric exam: Present: normal affect, normal mood ED Course Vital Signs 01/06/20 01:32 Temperature 98.6 F Pulse Rate 91 H Respiratory 18 Rate Blood Pressure 137/85 O2 Sat by Pulse 100 Oximetry ED Medical Decision Making - Radiology Data Radiology results: report reviewed LEFT FOOT 3 VIEWS INDICATION / CLINICAL INFORMATION: foreign body. COMPARISON: None available. FINDINGS: BONES/JOINT(S): No acute fracture or subluxation. No significant degenerative changes. SOFT TISSUES: No radiopaque foreign body or soft tissue gas identified. ADDITIONAL FINDINGS: None. - Medical Decision Making 34-year-old -[place] female patient presents with complaints of left foot pain x 1 month. Patient states pain has been ongoing since stepping on a piece of glass. She states she was not able to remove the piece of glass. Patient reports the pain has been worsening over the past few days. She denies any numbness/tingling/weakness in her foot or toes, redness, swelling, or fever/chills/sweats. She rates her pain as a 10/10 in severity and states she is unable to put pressure on her foot. On exam there is tenderness to the distal plantar third metatarsal region without obvious foreign body or erythema. X-ray is negative for any foreign body. Her vitals are normal. Recommend follow-up with podiatry for further assessment and treatment. Patient provided with crutches. She is well- appearing and stable for discharge home. Strict return precautions were discussed in detail with patient who verbalizes understanding. Critical care attestation.: If time is entered above; I have spent that time in minutes in the direct care of this critically ill patient, excluding procedure time. ED Disposition Clinical Impression: Acute pain of left foot Disposition: DC-01 TO HOME OR SELFCARE Is pt being admited?: No Condition: Stable Instructions: Soft Tissue Foreign Body (ED) Prescriptions: Diclofenac Sodium 75 mg PO BID PRN #14 tablet. PRN Reason: Pain Acetaminophen/Codeine [Tylenol /Codeine # 3 tab] 1 tab PO Q6H PRN #10 tab PRN Reason: Pain , Severe (7-10) Referrals: EMPERATRIZ BELTRE DPM [Staff Physician] - 2-3 Days
[2020-01-06] MEDS ORDERED: IBUPROFEN 800 MG TAB PO ONE (04:48)
[2020-01-06] MEDS ORDERED: oxyCODONE /ACETAMINOPHEN 5-325MG TAB PO ONE (04:48)
== END 2020-01-06 05:11 | disposition home or self-care (01) ==
LOC: ED 00:38
DX: M79.672 Pain in left foot (principal); K21.9 Gastro-esophageal reflux disease without esophagitis; M19.91 Primary osteoarthritis, unspecified site; G43.909 Migraine, unspecified, not intractable, without status migrainosus; J45.909 Unspecified asthma, uncomplicated; Z98.890 Other specified postprocedural states; Z79.1 Long term (current) use of non-steroidal anti-inflammatories (NSAID); Z79.899 Other long term (current) drug therapy

== ENCOUNTER 2020-05-12 11:22 | Emergency (ER) | payer MEDICAID ==
[2020-05-12 11:30] VITALS: BP 144/86
[2020-05-12] MEDS ORDERED: dexAMETHasone 20 MG/5 ML VIAL IM ONE (11:33)
--- NOTE | 2020-05-12 11:53 | Emergency Department Report ---
ED General Adult HPI - General Chief complaint: Pain General Stated complaint: FLANK PAIN/RT ARM PAIN Time Seen by Provider: 05/12/20 11:33 Source: patient Mode of arrival: Ambulatory Limitations: No Limitations - History of Present Illness Initial comments: This is a 34-year-old female presents emergency department chief complaint of right-sided neck pain with radiating pain down her right arm and radicular pain down the right leg over the past many weeks. She denies any injuries. Reports pain is aggravated by movement. She denies any associated fevers, chills, night sweats, headache, dizziness, blurry vision, nausea, vomiting, diarrhea, chest pain, shortness of breath, saddle anesthesia, urinary or bowel incontinence, urinary retention or any other associated symptoms. Patient reports she was seen by her neurologist yesterday and had an MRI ordered but she has not done it yet. She is here for pain control she states. Severity scale (0 -10): 10 - Related Data Home Medications Medication Instructions Recorded Confirmed Last Taken ARIPiprazole [Abilify] 10 mg PO DAILY 07/08/19 07/08/19 07/07/19 12:00 Dextroamphetamine/Amphetamine 20 mg PO BID 07/08/19 07/08/19 07/07/19 12:00 [Adderall 20 mg Tablet] Vortioxetine Hydrobromide 20 mg PO QHS 07/08/19 07/08/19 07/07/19 12:00 [Trintellix] hydrOXYzine PAMOATE [Vistaril] 25 mg PO BID PRN 07/08/19 07/08/19 07/07/19 12:00 Previous Rx's Medication Instructions Recorded Last Taken Type Docusate Sodium [Colace] 100 mg PO BID PRN #60 capsule 07/08/19 Unknown Rx Ibuprofen [Motrin] 800 mg PO Q8HR PRN #60 tablet 07/08/19 Unknown Rx Oxycodone HCl/Acetaminophen 1 each PO Q6HR PRN #30 tablet 07/08/19 Unknown Rx [Percocet 10/325 mg] Acetaminophen/Codeine [Tylenol 1 tab PO Q6H PRN #10 tab 01/06/20 Unknown Rx /Codeine # 3 tab] Diclofenac Sodium 75 mg PO BID PRN #14 tablet. 01/06/20 Unknown Rx Meloxicam [Mobic] 15 mg PO DAILY #12 tablet 05/12/20 Unknown Rx methOCARBAMOL [Robaxin TAB] 500 mg PO Q6H #20 tablet 05/12/20 Unknown Rx methylPREDNISolone [Medrol 4MG 4 mg PO ONCE #1 tab.ds.pk 05/12/20 Unknown Rx DOSEPAK (21 tabs)] Allergies Allergy/AdvReac Type Severity Reaction Status Date / Time No Known Allergies Allergy Verified 06/29/19 14:32 ED Review of Systems ROS: Stated complaint: FLANK PAIN/RT ARM PAIN Other details as noted in HPI Comment: All other systems reviewed and negative Constitutional: denies: chills, fever Eyes: denies: eye pain, eye discharge, vision change ENT: denies: ear pain, throat pain Respiratory: denies: cough, shortness of breath, wheezing Cardiovascular: denies: chest pain, palpitations Endocrine: no symptoms reported Gastrointestinal: denies: abdominal pain, nausea, diarrhea Genitourinary: denies: urgency, dysuria, discharge Musculoskeletal: as per HPI, back pain. denies: joint swelling, arthralgia Skin: denies: rash, lesions Neurological: denies: headache, weakness, paresthesias Psychiatric: denies: anxiety, depression Hematological/Lymphatic: denies: easy bleeding, easy bruising ED Past Medical Hx - Past Medical History Hx Hypertension: No Hx Congestive Heart Failure: No Hx Diabetes: No Hx GERD: Yes Hx Liver Disease: No Hx Renal Disease: No Hx Arthritis: Yes (Hands) Hx Headaches / Migraines: Yes (Migraines) Hx Asthma: Yes (last inhaler 3 wks ago) Additional medical history: ovarian cysts - Surgical History Additional Surgical History: left ovary removal surgery - Social History Smoking Status: Never Smoker Substance Use Type: None - Medications Home Medications: Home Medications Medication Instructions Recorded Confirmed Last Taken Type ARIPiprazole [Abilify] 10 mg PO DAILY 07/08/19 07/08/19 07/07/19 12:00 History Dextroamphetamine/Amphetamine 20 mg PO BID 07/08/19 07/08/19 07/07/19 12:00 History [Adderall 20 mg Tablet] Docusate Sodium [Colace] 100 mg PO BID PRN #60 capsule 07/08/19 Unknown Rx Ibuprofen [Motrin] 800 mg PO Q8HR PRN #60 tablet 07/08/19 Unknown Rx Oxycodone HCl/Acetaminophen 1 each PO Q6HR PRN #30 tablet 07/08/19 Unknown Rx [Percocet 10/325 mg] Vortioxetine Hydrobromide 20 mg PO QHS 07/08/19 07/08/19 07/07/19 12:00 History [Trintellix] hydrOXYzine PAMOATE [Vistaril] 25 mg PO BID PRN 07/08/19 07/08/19 07/07/19 12:00 History Acetaminophen/Codeine [Tylenol 1 tab PO Q6H PRN #10 tab 01/06/20 Unknown Rx /Codeine # 3 tab] Diclofenac Sodium 75 mg PO BID PRN #14 tablet.dr 01/06/20 Unknown Rx Meloxicam [Mobic] 15 mg PO DAILY #12 tablet 05/12/20 Unknown Rx methOCARBAMOL [Robaxin TAB] 500 mg PO Q6H #20 tablet 05/12/20 Unknown Rx methylPREDNISolone [Medrol 4MG 4 mg PO ONCE #1 tab.ds.pk 05/12/20 Unknown Rx DOSEPAK (21 tabs)] ED Physical Exam - General Limitations: No Limitations General appearance: alert, in no apparent distress - Head Head exam: Present: atraumatic, normocephalic - Eye Eye exam: Present: normal appearance, PERRL, EOMI Pupils: Present: normal accommodation - ENT ENT exam: Present: normal exam, normal orophraynx, mucous membranes moist - Neck Neck exam: Present: normal inspection, full ROM. Absent: tenderness, meningismus - Respiratory Respiratory exam: Present: normal lung sounds bilaterally. Absent: respiratory distress - Cardiovascular Cardiovascular Exam: Present: regular rate, normal rhythm, normal heart sounds. Absent: systolic murmur, diastolic murmur, rubs, gallop - GI/Abdominal GI/Abdominal exam: Present: soft, normal bowel sounds. Absent: distended, tenderness, guarding, rebound, rigid - Extremities Exam Extremities exam: Present: normal inspection, full ROM, normal capillary refill. Absent: tenderness, calf tenderness - Back Exam Back exam: Present: normal inspection, full ROM. Absent: tenderness, CVA tenderness (R), CVA tenderness (L) - Neurological Exam Neurological exam: Present: alert, oriented X3, normal gait - Psychiatric Psychiatric exam: Present: normal affect, normal mood - Skin Skin exam: Present: warm, dry, intact, normal color. Absent: rash ED Course Vital Signs 05/12/20 11:28 Temperature 98.8 F Pulse Rate 93 H Respiratory 17 Rate Blood Pressure 144/86 [Left] O2 Sat by Pulse 97 Oximetry ED Medical Decision Making - Medical Decision Making Patient nontoxic in no acute distress. Vital signs are stable. She had normal equal radial femoral pulses with no tearing or ripping pain to the back or chest making dissection or aneurysm unlikely. Patient had pain with Spurling sign of the neck but no weakness in the arm making cervical radiculopathy most likely. We will treat the patient with a short course of steroids, anti-inflammatories and muscle relaxers and recommended outpatient follow-up with spine surgery and return to the ER with any change or worsening symptoms. She had no red flags for cauda equina syndrome with no saddle anesthesia, urinary or bowel incontinence or urinary retention. She had no fever or history of IV drug use or immunocompromise state making spinal epidural abscess unlikely. - Differential Diagnosis Lumbar radiculopathy, cervical radiculopathy, multiple sclerosis Critical care attestation.: If time is entered above; I have spent that time in minutes in the direct care of this critically ill patient, excluding procedure time. ED Disposition Clinical Impression: Cervical radiculopathy Disposition: -01 TO HOME OR SELFCARE Is pt being admited?: No Condition: Stable Instructions: Radicular Pain Prescriptions: methylPREDNISolone [Medrol 4MG DOSEPAK (21 tabs)] 4 mg PO ONCE #1 tab.ds.pk Meloxicam [Mobic] 15 mg PO DAILY #12 tablet methOCARBAMOL [Robaxin TAB] 500 mg PO Q6H #20 tablet Referrals: [facility] [Provider Group] - 3-5 Days Time of Disposition: 11:49
== END 2020-05-12 12:00 | disposition home or self-care (01) ==
LOC: ED 11:22
DX: M54.12 Radiculopathy, cervical region (principal); K21.9 Gastro-esophageal reflux disease without esophagitis; M19.91 Primary osteoarthritis, unspecified site; G43.909 Migraine, unspecified, not intractable, without status migrainosus; J45.909 Unspecified asthma, uncomplicated; Z98.890 Other specified postprocedural states; Z79.1 Long term (current) use of non-steroidal anti-inflammatories (NSAID); Z79.899 Other long term (current) drug therapy
CPT/HCPCS: 96372; 99281; J1100

== ENCOUNTER 2021-06-14 07:43 | Day surgery (SDC) | payer MEDICAID ==
[~2021-06-14 07:43] MED LIST changes: +ACETAMINOPHEN 500 MG TAB PO SCH; -MAGNESIUM OXIDE 400 MG TAB PO SCH; +SCOPOLAMINE TRANSDERMAL PATCH 72 HR TD NR; -ceFAZolin/Water 2 GM/20 ML 2 GM/20 ML SYRINGE IV NR; -fentaNYL 100 MCG/2 ML INJ IV PRN
--- NOTE | 2021-06-14 07:49 | Short Stay Summary ---
Short Stay Documentation Date of service: 06/14/21 Narrative H&P: 35y/o with chronic pelvic pain for years presents with new findings of a right 5cm cyst or possible fluid collection. The patient reports worsening pelvic pain. She has a history of a previous left oophorectomy. - History Principal diagnosis: Chronic pelvic pain Past Medical History: other (depression) Past Surgical History: , Other (laparoscopy; robotic hysterectomy) Social history: single - Allergies and Medications Current Medications: Allergies codeine Allergy (Verified 06/12/21 09:29) Itching Home Medications Medication Instructions Recorded Confirmed Last Taken Type Dextroamphetamine/Amphetamine 20 mg PO BID 07/08/19 06/12/21 07/07/19 12:00 History [Adderall 20 mg Tablet] Oxycodone HCl/Acetaminophen 1 each PO Q6HR PRN #30 tablet 07/08/19 06/12/21 Unknown Rx [Percocet 10/325 mg] Gabapentin [Neurontin] 300 mg PO TID 06/12/21 06/12/21 Unknown History methOCARBAMOL [Robaxin TAB] 500 mg PO BID 06/12/21 06/12/21 Unknown History Active Medications Acetaminophen (Acetaminophen 500 Mg Tab) 1,000 mg PO PREOP LENKA Celecoxib (Celecoxib 200 Mg Cap) 200 mg PO PREOP NR Stop: 06/14/21 23:59 Gabapentin (Gabapentin 300 Mg Cap) 300 mg PO PREOP NR Stop: 06/14/21 23:59 Lactated Ringer's (Lactated Ringers) 1,000 mls @ 100 mls/hr IV DIRECT LENKA Stop: 06/14/21 23:59 Midazolam HCl (Midazolam 2 Mg/2 Ml Inj) 2 mg IV PREOP NR Stop: 06/14/21 23:59 Scopolamine (Scopolamine Transdermal Patch 72 Hr) 1 each TD PREOP NR Stop: 06/14/21 23:59 - Physical exam General appearance: no acute distress Integumentary: no rash HEENT: Atraumatic Lungs: Clear to auscultation Breasts: deferred Heart: Regular rate Gastrointestinal: normal Female Genitourinary: deferred Rectal Exam: deferred - Brief post op/procedure progress note Date of procedure: 06/14/21 Pre-op diagnosis: Ovarian cyst Post-op diagnosis: same Procedure: Laparoscopy Right ovarian cystectomy Anesthesia: GETA Surgeon: JACKELYN MCNEILL Estimated blood loss: minimal Pathology: list (Right ovarian cyst) Specimen disposition: to lab Condition: stable - Hospital course Hospital course: The patient was admitted the day of surgery underwent a right ovarian cystectomy. Please see operative note for details of surgery. Her postoperative course was uneventful. - Disposition Condition at discharge: Good Disposition: 01 HOME / SELF CARE / HOMELESS Short Stay Discharge Plan Activity: other (Pelvic rest for 1 week) Diet: regular Additional Instructions: Schedule follow-up with Dr. Mcneill in 2 weeks Prescriptions: Ibuprofen [Motrin] 800 mg PO Q8HR PRN #30 tablet PRN Reason: Pain , Severe (7-10) Oxycodone HCl/Acetaminophen [Percocet 10/325 mg] 1 each PO Q6HR PRN #20 PRN Reason: Pain
--- NOTE | 2021-06-14 08:42 | Anesthesia Day of Surgery ---
Anesthesia Day of Surgery - Day of Surgery Patient Examined: Yes Patient H&P Reviewed: Yes Patient is NPO: Yes
--- NOTE | 2021-06-14 08:42 | Anesthesia Consultation ---
Anesthesia Consult and Med Hx Date of service: 06/14/21 - Airway Anesthetic Teeth Evaluation: Good ROM Head & Neck: Adequate Mental/Hyoid Distance: Adequate Mallampati Class: Class II Intubation Access Assessment: Probably Good - Pre-Operative Health Status ASA Pre-Surgery Classification: ASA2 Proposed Anesthetic Plan: General - Pulmonary Hx Smoking: Yes (1/3 PPD) Hx Asthma: Yes (no recent albuterol use) Hx Respiratory Symptoms: No - Cardiovascular System Hx Hypertension: No - Central Nervous System CVA: No Hx Back Pain: Yes (low back pain with sciatic neuropathy) Hx Psychiatric Problems: Yes (ADHD) - Endocrine Hx Renal Disease: No Hx Liver Disease: No Hx Insulin Dependent Diabetes: No Hx Non-Insulin Dependent Diabetes: No Hx Thyroid Disease: No - Additional Comments Anesthesia Medical History Comments: No hx anesthetic complications.
[2021-06-14] MEDS ORDERED: oxyCODONE /ACETAMINOPHEN 5-325MG TAB PO PRN (09:00)
[2021-06-14] MEDS ORDERED: BUPIVACAINE/PF (0.5%) 5 MG/1 ML 30 ML VIAL INFILTRATI ONE ×2 (09:50→10:42)
[2021-06-14] MEDS ORDERED: propofoL 200 MG/20 ML VIAL IV ONE (09:53)
[2021-06-14] MEDS ORDERED: fentaNYL 100 MCG/2 ML INJ ONE (09:53)
[2021-06-14] MEDS ORDERED: ROCURONIUM 50 MG/5 ML INJ IV ONE (09:53)
[2021-06-14] MEDS ORDERED: LIDOCAINE MPF (2%) 20 MG/1 ML VIAL 5 ML ONE (09:53)
[2021-06-14] MEDS ORDERED: ONDANSETRON 4 MG/2 ML INJ ONE (10:28)
[2021-06-14] MEDS ORDERED: SODIUM CHLORIDE 0.9% IRR 1,500 ML BOTTLE IR ONE (10:42)
--- NOTE | 2021-06-14 11:18 | Operative Report ---
Operative Report Operative Report: Date of surgery: June 14, 2021 Preoperative diagnosis: Chronic pelvic pain; ovarian cyst Postoperative diagnosis: Same as above Procedure: Laparoscopy; right ovarian cystectomy Surgeon: Josey Walton M.D. Anesthesia: General endotracheal anesthesia Estimated blood loss: Minimal Findings: Enlarged right ovarian cyst. No pelvic adhesions or evidence of endometriotic implants Indication: 35-year-old -0-0-1 with a history of chronic pelvic pain. Patient underwent ultrasound with findings of a 5 cm ovarian cyst. Procedure: The patient was taken to the operating room and given general endotracheal anesthesia without complication. The patient is prepped and draped in a normal sterile fashion. A bivalve speculum was placed in the patient's vagina and a single-tooth tenaculum was placed on the anterior lip of the cervix .A uterine acorn manipulator was placed, and the bivalve speculum was then removed. Attention was then turned to the patient's abdomen where a 5 mm infraumbilical skin incision was then made. A Veress needle was placed and peritoneal entry was verified water-filled syringe. Insufflation of the peritoneal cavity was performed with CO2 gas. A 5 mm trocar was placed and the laparoscope was then inserted. The patient was then placed in Trendelenburg. A 5 mm suprapubic skin incision was then made. Under direct visualization a 5 mm trocar was then placed. An additional 5 mm left lateral trocar was also placed. General survey of the patient's abdomen revealed surgically absent uterus and left adnexa. There was no evidence of any significant adhesive disease or endometriotic implants. The right ovary was enlarged with findings of a hemorrhagic cyst. The graspers were inserted through the 5 mm trocar. The monopolar scissors were used to excise the ovarian cortex. There was evidence of serosanguineous fluid that was expressed from the ovary. The ovarian cyst wall was dissected from the ovarian cortex. Surgicel powder was placed on the ovary. The pneumoperitoneum was then released. The trocars were then removed. The 5 mm trocar laparoscope was then removed. The skin incisions were then closed with 4-0 Monocryl. The incisions were injected with quarter percent Marcaine. Dressings were applied to the incision. The vaginal instruments were then removed atraumatically. Then successfully extubated and taken to the recovery room. All sponge laps and needle counts were correct x2.
[2021-06-14] MEDS: HYDROmorphone 1 MG/1 ML INJ IV PRN ×2 (12:28→12:38)
[2021-06-14 13:14] VITALS: BP 121/77
--- NOTE | 2021-06-14 14:31 | Post Anesthesia Evaluation ---
- Post Anesthesia Evaluation Patient Participated: Yes Airway Patent: Yes Stable Respiratory Function: Yes Nausea/Vomiting: No Temp > 96.8F: Yes Pain Manageable: Yes Adequeate Hydration: Yes Anesthesia Complications: No
== END 2021-06-14 13:55 | disposition home or self-care (01) ==
LOC: OR 07:43
PROVIDERS: ATTEND Obstetrics & Gynecology
DX: R10.2 Pelvic and perineal pain (principal); G89.29 Other chronic pain; N83.201 Unspecified ovarian cyst, right side; N94.6 Dysmenorrhea, unspecified; K21.9 Gastro-esophageal reflux disease without esophagitis; J45.909 Unspecified asthma, uncomplicated; M19.90 Unspecified osteoarthritis, unspecified site; F32.9 Major depressive disorder, single episode, unspecified; F41.9 Anxiety disorder, unspecified; Z88.5 Allergy status to narcotic agent; Z79.899 Other long term (current) drug therapy; Z90.710 Acquired absence of both cervix and uterus; Z98.890 Other specified postprocedural states; Z83.3 Family history of diabetes mellitus
CPT/HCPCS: 58662; 88305; J1170; J2250; J2405; J2704; J3010; J3490; J7120